=== PATIENT | female | born 2000 | race Asian ===

== ENCOUNTER → 2023-05-07 12:49 | Outpatient (BNVA) | payer MEDICAID, SELFPAY | PROVIDERS: Visit Provider Nurse Practitioner Women's Health | DX: Z34.90 Encounter for supervision of normal pregnancy, unspecified, unspecified trimester (principal) | CPT/HCPCS: 81000; 82950; 84315; 87086; 87491; 87591 ==

== ENCOUNTER → 2023-05-10 11:04 | Outpatient (BNVA) | payer MEDICAID, SELFPAY | PROVIDERS: Visit Provider Obstetrics & Gynecology | DX: Z34.90 Encounter for supervision of normal pregnancy, unspecified, unspecified trimester (principal); R73.09 Other abnormal glucose | CPT/HCPCS: 82951; 82952 ==

== ENCOUNTER → 2023-05-14 11:03 | Outpatient (BNVA) | payer MEDICAID, SELFPAY | PROVIDERS: Visit Provider Obstetrics & Gynecology | DX: Z34.90 Encounter for supervision of normal pregnancy, unspecified, unspecified trimester (principal) | CPT/HCPCS: 76805 ==

== ENCOUNTER → 2023-05-15 10:56 | Outpatient (BNVA) | payer MEDICAID, SELFPAY | PROVIDERS: Visit Provider Obstetrics & Gynecology | DX: Z34.90 Encounter for supervision of normal pregnancy, unspecified, unspecified trimester (principal) | CPT/HCPCS: 80307; 84315; 87086 ==

== ENCOUNTER → 2023-06-12 15:00 | Outpatient (BNVA) | payer MEDICAID, SELFPAY | PROVIDERS: Visit Provider Obstetrics & Gynecology | DX: Z34.90 Encounter for supervision of normal pregnancy, unspecified, unspecified trimester (principal) | CPT/HCPCS: 84315; 87081 ==

== ENCOUNTER 2023-06-18 01:36 | Inpatient (IN) | payer MEDICAID, SELFPAY ==
[2023-06-17] VITALS (30 sets, daily range): BP systolic 97–120; BP diastolic 52–71; PULSE 74–113; RESP 18; TEMP 36.7; O2SAT 97–99; BMI 35.1
[2023-06-17 20:36] LABS: Basophils % 0.1 %; Eosinophils % 0.2 %; Hematocrit 31.8 % (36-47); Lymphocytes # 1.2 10^3/uL (0.8-4.8); Lymphocytes % 13.2 %; Mean Corpuscular HGB Conc 32.7 g/dL (30-55); Mean Corpuscular Hemoglobin 27.7 pg (27-33); Mean Corpuscular Volume 84.6 fl (85-98); Mean Platelet Volume 14.1 fL (7.4-10.4); Monocytes # 0.4 10^3/uL (0.2-0.9); Neutrophils # 7.15 10^3/uL (1.8-7.7); Neutrophils % 81.9 %; Nucleated Red Blood Cells % 0 %; Platelet Count 127 10^3/cmm (157-399); Red Blood Count 3.76 10^6/uL (3.85-5.65); Red Cell Distribution Width 13.9 % (12.1-15.1); White Blood Count 8.73 10^3/uL (3.29-11.43)
[2023-06-17] MEDS: ampicillin 2,000 MG in sodium chloride 0.9% (plus) 50 ML 100 MG IV (21:35)
[2023-06-17] MEDS: dextrose 5%-lactated ringers 1,000 ML 125 ML IV (21:35)
[2023-06-17] MEDS: ROPivacaine syringe 100 MG/50 ML SYRINGE 10 MG EPIDURAL (22:00)
--- NOTE | 2023-06-17 22:04 | ANES.PREANE2 ---
Pre-Anesthetic Assessment Height/Weight: Height 1.5 m Weight 78.925 kg Pulse BP Pulse Ox 79 111/55 98 06/17/23 22:01 06/17/23 22:01 06/17/23 21:50 Preop Diagnosis: Labor Pain epidural Familial anesthetic complications: none Was Beta Edvin taken within 24 hours: N/A Was Clonidine taken within 24 hours: N/A Social No alcohol and No tobacco Exam alert, oriented x 3, clear to auscultation bilaterally and regular rate & rhythm Airway Submandibular: within normal limits Cervical ROM: within normal limits Mallampati: Class II Dentition: full Pulmonary None reported CV/HEM None reported None reported Hepatic None reported GI None reported Metabolic None reported Musc/skel None reported Neuropsych None reported Anesthetic Plan ASA status: 2 Anesthesia: Regional (specify below) Risk of > 500 ml blood loss (7ml/kg in children): No Medications/Allergies Home Medications Medication Instructions Recorded Confirmed Last Taken Type vits no.126-ferrous fum tab PO 05/07/23 06/12/23 Unknown History 28 mg iron-folic acid 800 mcg tablet (Classic ) Allergies Allergy/AdvReac Type Severity Reaction Status Date / Time No Known Allergies Allergy Verified 06/12/23 13:42 Current Medications Generic Name Dose Route Start Last Admin Trade Name Freq PRN Reason Stop Dose Admin Dextrose/Lactated Ringer's 1,000 mls @ 125 mls/hr 06/17/23 20:00 06/17/23 21:35 Dextrose 5%-Lactated Ringers IV 125 mls/hr .Q8H LEENA Administration PFSH Anesthesia Family History Mother Diabetes Grandmother Diabetes Hypertension Grandfather Breast cancer Denies family history of Colon cancer Ovarian cancer Heart disease Hyperlipidemia Uterine cancer Thyroid condition Stroke Female Reproductive History : 2 Data Anesthesia 06/17/23 20:25 Short CBC 06/17/23 Range/Units 20:25 WBC 8.73 (3.29-11.43) 10^3/uL Hgb 10.40 L (11.27-16.99) g/dL Hct 31.8 L (36-47) % MCV 84.6 L (85-98) fl Plt Count 127 L (157-399) 10^3/cmm Neut % (Auto) 81.9 % Neut # (Auto) 7.15 (1.8-7.7) 10^3/uL Cardiac Studies: No Data to Display
--- NOTE | 2023-06-17 22:05 | ANES.PROC ---
Anesthesia Procedures Procedure/Date: 06/17/23 epidural Procedure Narrative: epidural complete, bolus given, epidural pump initiated with [employer] education given, vitals taken during procedure and satisfactory throughout, patient admits to decrease pain, report of procedure to OB RN Epidural: Time Out Performed: Yes Consents Signed: Procedure Consent Consent: requested by attending/covering physician, from patient, risks and benefits reviewed and patient agrees to proceed Lumbar Level: L3-L4 Epidural position: sitting Epidural procedure: sterile prep of area, 1% lidocaine to numb the area (3 mL), 18 g needle, negative for paresthesia passed, neg for paresthesia, test dose given, 1.5% xylocaine 1:200k epi (5 mL), 0.2% Ropivacaine bolus ml (5 mL), placed PCEA, no systemic response, sterile dressing applied, L.U.D. no apparent complications and 0.2% Ropiavacaine @ mls/hr (13 mL/hr)
[2023-06-18] VITALS (32 sets, daily range): BP systolic 83–122; BP diastolic 46–78; PULSE 66–97; RESP 15–18; TEMP 36.4–36.9
[2023-06-18] MEDS: ampicillin 1,000 MG in sodium chloride 0.9% (plus) 50 ML 100 MG IV (01:28)
[2023-06-18] MEDS: ROPivacaine syringe 100 MG/50 ML SYRINGE 10 MG EPIDURAL ×2 (01:28→04:03)
[2023-06-18] MEDS: oxytocin 30 UNIT/500 ML BAG IV (03:40)
[2023-06-18] MEDS: dextrose 5%-lactated ringers 1,000 ML 125 ML IV (03:41)
--- NOTE | 2023-06-18 05:19 | P.PCNOB_ITS ---
Delivery Note: Date of delivery: June 18, 2023 Pre-delivery diagnoses: delivered labor Post-delivery diagnoses: Same Procedure: Spontaneous vaginal delivery Delivering Physician: Aniket Best MD Delivery: The nurse called when she noticed the patient was noted to be complete and pushing At 0455 the patient delivered a viable at 36+5 weeks male infant weighing 3135 g with scores of 8 and 9 at one and five minutes, r espectively. The nurse reported vertex was delivered spontaneously over intact perineum. A nuchal cord was noted, and delivered through. The infant was noted to have spontaneous cry and spontaneous movement of all four extremities. The was passed to the mother's abdomen where nursing personnel were in attendance. Upon my arrival to the room the cord was clamped x 2 and cut and noted to have 2 arteries and one vein. The placenta delivered intact spontaneously and the uterus was explored. 20 units of Pitocin was placed in the IV bag to firm the uterus. Examination of the cervix and vaginal vault did not reveal any lacerations. A vaginal pack was then placed. Examination of the perineum showed no lacerations were noted. The vaginal pack was then removed. The patient tolerated this procedure well, and recovered in L&D with her infant in their LDR room. All sponge and needle counts were correct. History History History 3 Term 2 0 Miscarriages/Ectopic 1 Living Children 2 Coding Level of Care Code Acute Code for Chg Fwd Diagnoses
[2023-06-18] MEDS: prenatal vitamin Capsule 1 CAP PO (07:30)
[2023-06-18] MEDS: ibuprofen 800 mg tablet PO ×3 (07:30→21:51)
[2023-06-18] MEDS: docusate sodium 100 mg Capsule PO ×2 (07:30→17:19)
[2023-06-18] MEDS: benzocaine-menthol 78 gm Canister 1 SPRAY TOPICAL (07:30)
[2023-06-18 07:49] LABS: Rubella IgG 42.5 IU/mL (0.0-10.0)
[2023-06-18 07:52] LABS: HIV 1 & 2 Antibody Non-Reactive (Non-Reactiv); HIV 1 & 2 Antigen Non-Reactive (Non-Reactiv)
[2023-06-18 08:28] LABS: Hepatitis B Surface Antigen Non-Reactive (Nonreactive); Hepatitis C Virus Antibody Non-Reactive (Nonreactive)
--- NOTE | 2023-06-18 08:28 | ANE.PACU2 ---
Inpatient post-anesthesia follow up: Airway intact: Yes Vital signs: Temperature 97.5 F Pulse Rate 66 Respiratory Rate 15 Blood Pressure 122/78 Pulse Oximetry 98 Oxygen Delivery Me thod Room Air Oxygen Flow Rate Fraction of Inspir ed Oxygen Hydration adequate: Yes Nausea and vomiting: No Pain level: 2 Mental status: Baseline Additional Comments: Anes start 06/17/23 2149 Anes end 06/18/23 8296
[2023-06-18] MEDS: acetaminophen 325 mg Tablet 650 MG PO (11:06)
[2023-06-18 17:43] LABS: Hematocrit 29.3 % (36-47); Mean Corpuscular HGB Conc 32.8 g/dL (30-55); Mean Corpuscular Hemoglobin 27.7 pg (27-33); Mean Corpuscular Volume 84.4 fl (85-98); Mean Platelet Volume 13.8 fL (7.4-10.4); Platelet Count 110 10^3/cmm (157-399); Red Blood Count 3.47 10^6/uL (3.85-5.65); Red Cell Distribution Width 13.9 % (12.1-15.1); White Blood Count 12.01 10^3/uL (3.29-11.43)
[2023-06-19 05:12] VITALS: BP 115/70; PULSE 82; RESP 16; TEMP 36.9
[2023-06-19] MEDS: ibuprofen 800 mg tablet PO (09:07)
[2023-06-19] MEDS: docusate sodium 100 mg Capsule PO (09:08)
[2023-06-19] MEDS: prenatal vitamin Capsule 1 CAP PO (09:08)
[2023-06-19] MEDS: flu vacc pf 2023-24 (6 mos+) 60 MCG IM (10:01)
--- NOTE | 2023-06-19 10:17 | PM.OBGYDC ---
Discharge Providers TRAVEL M[employer] ADVISOR Date of Admission: 06/18/23 01:36 Date of Discharge: 06/19/23 Attending Provider at Admission: Aniket Best MD Attending Provider at Discharge: Aniket Best MD Reason for Visit Reason for Visit: contractions Hospital Course Hospital Course Mrs. Munson 23-year-old female G3, P2 with an estimated gestational age at 36 weeks and 6 days came to labor and delivery in labor. She progressed to have a spontaneous vaginal delivery without complications. and observation was uneventful. She is afebrile hemodynamically stable day 1. Tolerating diet well. Ambulating without difficulty. Breast-feeding without difficulty. Refers she might be using the implant for contraception when she returns to the clinic at the 6-week visit. She was counseled regarding pelvic rest for 6 weeks (no sex, no tampons, no vaginal douches). Return to the emergency room if any fever, increased bleeding or pain. Information Peripartum Data: Infant Delivery Method: Vaginal Physical Exam Narrative: GA; alert and oriented x 3 HEENT: normal Breasts: engorged Nipples - skin intact Lungs; clear to auscultation Heart: regular rhythm, no murmurs. Abd: Appropriately tender. BS+. Uterine fundus below umbilicus. No Fundal Tenderness. Perineum: normal lochia. Extremities: no edema, no cyanosis, no tenderness. Urinary Catheter Management: Gallegos Latex: Cath Placed During This Visit: yes, but has since been removed by the nurse Reason for Continuing Indwelling Catheter: Decision to DC Catheter Urinary Catheter Date of Insertion: 06/17/23 Urinary Catheter Time of Insertion: 22:25 Date Urinary Catheter Removed: 06/18/23 Time Urinary Catheter Discontinued: 04:50 History History History 3 Term 2 0 Miscarriages/Ectopic 1 Living Children 2 Discharge Data Studies Completed and Pending Pending at discharge Category Date Time Status RPR with Reflex to Titer Routine Lab 06/17/23 23:27 Received Laboratory Results WBC 12.01 10^3/uL (3.29-11.43) H 06/18/23 17:29 RBC 3.47 10^6/uL (3.85-5.65) L 06/18/23 17:29 Hgb 9.60 g/dL (11.27-16.99) L 06/18/23 17:29 Hct 29.3 % (36-47) L 06/18/23 17: MCV 84.4 fl (85-98) L 06/18/23 17: MCH 27.7 pg (27-33) 06/18/23 17: MCHC 32.8 g/dL (30-55) 06/18/23 17: RDW 13.9 % (12.1-15.1) 06/18/23 17: Plt Count 110 10^3/cmm (157-399) L 06/18/23 17: MPV 13.8 fL (7.4-10.4) H 06/18/23 17: Neut % (Auto) 81.9 % 06/17/23 20:25 Lymph % (Auto) 13.2 % 06/17/23 20:25 Daniels % (Auto) 4.0 % 06/17/23 20: Eos % (Auto) 0.2 % 06/17/23 20: Baso % (Auto) 0.1 % 06/17/23 20: Neut # (Auto) 7.15 10^3/uL (1.8-7.7) 06/17/23 20:25 Lymph # (Auto) 1.2 10^3/uL (0.8-4.8) 06/17/23 20:25 Daniels # (Auto) 0.4 10^3/uL (0.2-0.9) 06/17/23 20:25 Eos # (Auto) 0.0 10^3/uL (0.0-0.8) 06/17/23 20:25 Baso # (Auto) 0.0 10^3/uL (0.0-0.1) 06/17/23 20:25 Nucleated RBC % (auto) 0 % 06/17/23 20: Nucleated RBCs # 0.0 /100WBC 06/17/23 20:25 Hep Bs Antigen Non-reactive (Nonreactive) 06/18/23 06:53 Hepatitis C Antibody Non-reactive (Nonreactive) 06/18/23 06:53 HIV 1&2 Ab & HIV 1 Ag Non-reactive (Non-Reactiv) 06/18/23 06:53 HIV 1&2 Antibody Non-reactive (Non-Reactiv) 06/18/23 06:53 Rubella IgG Antibody 42.5 IU/mL (0.0-10.0) H 06/18/23 06:53 Blood Type A Positive 06/17/23 20:25 Rho(D) Type Positive 06/17/23 20:25 Antibody Screen Negative 06/17/23 20:25 Vitals Last Vital Signs Temp 98.4 F 06/19/23 05:12 Pulse 82 06/19/23 05:12 Resp 16 06/19/23 05:12 BP 115/70 06/19/23 05:12 Pulse Ox 98 06/17/23 21:50 O2 Del Method Room Air 06/19/23 05:12 Results Labs OB ([facility]): Blood Type A Positive 06/17/23 Antibody Screen Negative 06/17/23 Hct 29.3 % (36-47) L 06/18/23 Hgb 9.60 g/dL (11.27-16.99) L 06/18/23 Rho(D) Type Positive 06/17/23 Plt Count 110 10^3/cmm (157-399) L 06/18/23 Hep Bs Antigen Non-reactive (Nonreactive) 06/18/23 Hepatitis C Antibody Non-reactive (Nonreactive) 06/18/23 Rubella IgG Antibody 42.5 IU/mL (0.0-10.0) H 06/18/23 HIV 1&2 Ab & HIV 1 Ag Non-reactive (Non-Reactiv) 06/18/23 C.trachomatis RNA (TMA) Not detected (NOT DETECTED) 05/07/23 N.gonorrhoeae RNA (TMA) Not detected (NOT DETECTED) 05/07/23 Chlamydia/GC Comment See note 05/07/23 Gest Glucose Tolerance mg/dL 05/10/23 Urine Opiates Screen Negative ng/mL (Negative) 05/15/23 Ur Barbiturates Screen Negative ng/mL (Negative) 05/15/23 Ur Phencyclidine Scrn Negative ng/mL (Negative) 05/15/23 Ur Amphetamines Screen Negative ng/mL (Negative) 05/15/23 U Benzodiazepines Scrn Negative ng/mL (Negative) 05/15/23 Urine Cocaine Screen Negative ng/mL (Negative) 05/15/23 U Marijuana (THC) Screen Negative ng/mL (Negative) 05/15/23 Micro Urine Specimen 05/15/23 Discharge Plan Discharge Patient Disposition: Home Condition: Stable Prescriptions: New ferrous sulfate [Iron (ferrous sulfate)] 325 mg (65 mg iron) tablet 325 mg PO BID Qty: 60 0RF ibuprofen 800 mg tablet 800 mg PO TID PRN (Reason: pain) Qty: 60 0RF acetaminophen 325 mg capsule 325 mg PO Q4H PRN (Reason: fever or pain) Qty: 60 0RF docusate sodium [Colace] 100 mg capsule 100 mg PO BID Qty: 60 0RF Continued Classic 28 mg iron- 800 mcg tablet PO Discharge Orders: Discharge Order (Routine); Ordered 06/19/23 Ordered By: Aniket Best Referrals: Aniket Best MD [Physician] - 07/29/23 2:30 pm Discharge Diet: Usual diet Patient Instructions: Depression (DC), Bleeding (DC), Preeclampsia and Eclampsia After Delivery (GEN), OB Discharge Report, OB Food/Drug Interaction Guide, Opioid Safety, OB Home Care, OB Proud Parent Packet, OB Vaginal Deliveries - [facility] Activity Restrictions/Additional Instructions: 1. Please call [facility] on next working day to make your appointment in 6 weeks. 2. Please stay home until you come back to the clinic on first post-hospatilization check up. 3. Please follow instructions on your medications CAREFULLY. 4. If you have abdominal incision, do not cover it unless dressing is necessary because of drainage. OK to shower, but avoid bath. Leave steri-strips until they fall off. If they are still on one week after surgery, you may remove them. 5. If you had vaginal surgery or vaginal repair, Dr. Best may instruct you to take SITZ bath. 6. Yellow, blood tinged odorous vaginal discharge is usually normal after hysterectomy or vaginal surgeries. 7. No SEXUAL INTERCOURSE, tampons, or douches until you are completely released from the post-operative care. 8. Avoid constipation by eating right and maybe using some Metamucil or Milk of Magnesia. 9. All prescription refills are given during the working hours. Please do no wait till it runs out. Call the clinic at [phone] before your medication runs out. The clinic will get in touch with your doctor to prescribe medications if necessary. 10. Please remain within 40 mile radius from our hospital because emergencies do happen now and then during the post-operative period. 11. If you have stairs at home, take one step at a time slowly and minimize the number of trips. It helps to stay in one floor for the next few days. No lifting except what you can lift by one hand until you are released from the post-operative care. 12. Driving is discouraged until you are well healed. It may be 3-4 weeks before you feel strong enough to drive. You should be able to turn and look through the rear window without pain and you should be able to push the brake pedal very hard without pain before you drive. No fast rules, but SAFETY should be your primary concern. DO NOT drive if you are on sedating medications such as narcotics. 13. Call the clinic (during working hours) to make urgent appointment or go to the Emergency room, if any of the following occurs: i. Vaginal bleeding becomes heavy, more than a period. ii. Incision becomes red and sore, or drains pus. iii. Your TEMPERATURE is over 100.4F or you have chill. iv. IV site becomes red and swollen (a little ``knot?? is usually OK) v. Persistent nausea and vomiting vi. Persistent constipation or diarrhea vii. Rash or allergic reaction to medications. Discharge Attestations TRAVEL MONEY ADVISOR Time Spent in Discharge Care*: greater than 30 min Coding Level of Care Code Acute Code for Chg Fwd Diagnoses
[2023-06-19 12:18] VITALS: BP 115/70; PULSE 82; RESP 16; TEMP 36.9
[2023-06-19 13:25] LABS: RPR w(Moniotor) w/REFL Titer NON-REACTIVE (NON-REACTIVE)
== END 2023-06-19 12:17 | disposition home or self-care (01) | DRG 807 ==
LOC: OPOB 01:36 → OBGYN 01:36
PROVIDERS: Admitting Provider Obstetrics & Gynecology; Visit Provider Obstetrics & Gynecology
DX: O69.2XX0 Labor and delivery complicated by other cord entanglement, with compression, not applicable or unspecified (principal); Z37.0 Single live birth; Z3A.36 36 weeks gestation of pregnancy
CPT/HCPCS: 36415; 51702; 59025; 59409; 85025; 85027; 86592; 86762; 86803; 86850; 86900; 87340; 87806; 90471; 90686; 99211; J0290; J2590; J2795; J7121

== ENCOUNTER → 2023-07-29 15:26 | Outpatient (BNVA) | payer MEDICAID, SELFPAY | PROVIDERS: Visit Provider Obstetrics & Gynecology | DX: Z30.9 Encounter for contraceptive management, unspecified (principal) | CPT/HCPCS: 81025 ==

== ENCOUNTER 2025-03-04 10:15 | Outpatient (CLI) | payer OTHER, SELFPAY ==
--- NOTE | 2025-03-04 10:24 | US_ITS ---
WS: [id number] ULTRASOUND BREAST LEFT TECHNIQUE: Ultrasound left breast focused area of concern. CLINICAL INFORMATION: LEFT breast pain/lump COMPARISON: None. FINDINGS: Ultrasound LEFT breast area of concern. Normal underlying parenchymal tissue. No cystic or solid lesions. No suspicious lesions to target for biopsy. Shadowing rib visualized in this area. US/US breast LT limited* [id number] IMPRESSION: No suspicious findings.
== END 2025-03-04 10:16 | disposition home or self-care (01) ==
LOC: RAD 10:16
PROVIDERS: PCP Nurse Practitioner; Visit Provider Nurse Practitioner
DX: N64.4 Mastodynia (principal)
CPT/HCPCS: 76642